=== PATIENT | female | born 1990 | race Caucasian/White ===

== ENCOUNTER 2017-01-02 10:16 | Inpatient (IN) | payer OTHER ==
[~2017-01-02] VITALS: Ht 154.9 cm; Wt 73.7 kg
[~2017-01-02 10:16] MED LIST: DIPH12.59 PO; PREN-39 PO; URSO300C3 PO
[2017-01-02 10:39] VITALS: Ht 154.9 cm; Wt 73.7 kg
[2017-01-02 10:40] VITALS: BP 109/65; PULSE 87
--- NOTE | 2017-01-02 13:02 | RADRPT ---
PROCEDURE: OB ultrasound for biophysical profile CLINICAL INDICATION: Spontaneous rupture of membranes TECHNIQUE: Multiple sonographic images of the pelvis were obtained. Transabdominal views of the g ravid uterus are available for review. The images were reviewed on a PACS workstation. COMPARISON: None FINDINGS: breathing movement = 2/2 tone = 2/2 motion = 2/2 FAMILIA = 2/2 FAMILIA = 17.2 cm Single live intrauterine with cardiac activity of 150 bpm. position is cephal ic. The placenta is bilateral. IMPRESSION: 1. Single live intrauterine gestation. 2. Biophysical profile = 8/8. 3. FAMILIA = 17.2 cm. RPTAT: HH .Romy Spencer MD, MD Date Time Electronically viewed and signed by .Romy Spencer MD, on 01/02/2017 13:02 .G/
[2017-01-02] MEDS ORDERED: LIDOCAINE 1% (MPF) 30 ML INJ INJ PRN (13:30)
[2017-01-02] MEDS ORDERED: LACTATED RINGER'S 1,000 ML IV PRN (13:30)
[2017-01-02] MEDS ORDERED: AMPICILLIN 2 GM/NS (PMX) 100 ML IV ONE (13:30)
[2017-01-02] MEDS ORDERED: MISOPROSTOL 200 MCG TAB PR PRN (13:30)
[2017-01-02] MEDS ORDERED: OXYTOCIN 30 UNITS/LR 500 ML IV PRN (13:30)
[2017-01-02] MEDS ORDERED: BUTORPHANOL 2 MG INJ IV PRN ×2 (13:30)
[2017-01-02] MEDS ORDERED: OXYTOCIN 30 UNITS/LR 500 ML IV SCH ×3 (13:30→18:30)
[2017-01-02] MEDS ORDERED: CARBOPROST 250 MCG INJ IM PRN (13:30)
[2017-01-02] MEDS ORDERED: METHYLERGONOVINE 0.2 MG INJ IM PRN (13:30)
[2017-01-02] MEDS: LACTATED RINGER'S 1,000 ML IV SCH ×2 (14:38→21:10)
[2017-01-02 14:45] LABS: ABNORMAL IP MESSAGE 1; BASOPHILS % 0.3 % (0.0-2.0); EOSINOPHILS % 0.4 % (0.0-7.0); HEMATOCRIT 34.5 % (37.0-47.0); HEMOGLOBIN 11.7 g/dl (12.0-16.0); LYMPHOCYTES # 1.1 10^3/ul (0.8-2.9); LYMPHOCYTES % 15.7 % (15.0-51.0); MEAN CORPUSCULAR HEMOGLOBIN 31.3 pg (29.0-33.0); MEAN CORPUSCULAR HGB CONC 33.9 g/dl (32.0-37.0); MEAN CORPUSCULAR VOLUME 92.2 fl (82.0-101.0); MEAN PLATELET VOLUME 13.4 fl (7.4-10.4); MONOCYTE # 0.4 10^3/ul (0.3-0.9); MONOCYTES % 5.7 % (0.0-11.0); NEUTROPHIL # 5.5 10^3/ul (1.6-7.5); NEUTROPHILS % 77.2 % (39.0-77.0); PLATELET COUNT 122 10^3/UL (140-415); RED BLOOD COUNT 3.74 10^6/ul (4.20-5.40); RED CELL DISTRIBUTION WIDTH 12.9 % (11.5-14.5); WHITE BLOOD COUNT 7.1 10^3/ul (4.8-10.8)
[2017-01-02 14:50] LABS: POSITIVE DIFF @See below
[2017-01-02 15:04] LABS: INR 0.9; PARTIAL THROMBOPLASTIN TIME 23.3 Sec (25.0-35.0); PROTIME 12.1 Sec (12.2-14.2); PT RATIO 0.9
--- NOTE | 2017-01-02 15:50 | RADRPT ---
PROCEDURE: US OB. CLINICAL INDICATION: Size and dates , spontaneous rupture of membranes TECHNIQUE: Multiple sonographic images of the pelvis and gravid uterus were obtained. The images were reviewed on a PACS workstation. COMPARISON: No prior studies are available for comparison. FINDINGS: There is a single viable intrauterine gestation. Cardiac activity is present with 134 beats per min [place]. There is a vertex presentation. The placenta is posterior. There is no evidence for an abruption or placenta previa. Measurements were made in order to determine age. The results are as follows: BPD =8.8 cm HC =31.6 cm AC =34.9 cm FL =7.1 cm Estimated gestational age of approximately 36 weeks and 4 days based on ultrasound measurements. Clinical age: 35 weeks and 6 days. The estimated date of delivery is 01/26/17, based on ultrasound measurements. The EFW = 3216 g, 89%, based on LMP age. RPTAT: AA IMPRESSION: Single viable intrauterine gestation of approximately 36 weeks and 4 days based on ultrasound measu rements. .Juan Flores MD, Date Time Electronically viewed and signed by .Juan Flores MD, MD on 01/02/2017 15:50 .S/
[2017-01-02 16:48] LABS: ALBUMIN 3.3 g/dl (3.3-4.9); ALBUMIN/GLOBULIN RATIO 0.84; BILIRUBIN,INDIRECT 0.2 mg/dl (0-1.1); BILIRUBIN,TOTAL 0.2 mg/dl (0.2-1.3); CALCIUM 9.2 mg/dl (8.4-10.2); CREATININE 0.46 mg/dl (0.44-1.00); POTASSIUM 3.9 mmol/L (3.5-5.1); TOTAL PROTEIN 7.2 g/dl (6.1-8.1)
[2017-01-02] MEDS: AMPICILLIN 1 GM/NS (PMX) 50 ML IV SCH ×2 (18:23→22:25)
[2017-01-02] MEDS ORDERED: URSODIOL 300 MG CAP PO ONE (19:00)
[2017-01-03] MEDS ORDERED: LACTATED RINGER'S 1,000 ML IV ONE (02:16)
[2017-01-03] MEDS ORDERED: FENTAnyl 2MCG/ML-ROPIV 0.2% 100 ML ONE (02:20)
[2017-01-03] MEDS: AMPICILLIN 1 GM/NS (PMX) 50 ML IV SCH ×3 (02:22→09:30)
[2017-01-03] MEDS ORDERED: DIPHENHYDRAMINE 50 MG INJ IV PRN (02:30)
[2017-01-03] MEDS ORDERED: ONDANSETRON 4 MG INJ IV PRN ×2 (02:30→12:30)
[2017-01-03] MEDS ORDERED: morphine 4 MG/ML VIAL IV PRN (02:30)
[2017-01-03] MEDS ORDERED: morphine 2 MG INJ IV PRN (02:30)
[2017-01-03] MEDS ORDERED: TRIMETHOBENZAMIDE 100 MG/ML VIAL IM PRN (02:30)
[2017-01-03] MEDS ORDERED: NALOXONE (0.4 MG/ML) INJ IV PRN (02:30)
[2017-01-03] MEDS ORDERED: FENTAnyl 2MCG/ML-ROPIV 0.2% 100 ML BAG EPI SCH (02:30)
[2017-01-03] MEDS ORDERED: NALBUPHINE HCL (10 MG/1 ML) INJ IV PRN (02:30)
[2017-01-03] MEDS ORDERED: KETOROLAC 30 MG INJ IV PRN (02:30)
[2017-01-03] MEDS ORDERED: ONDANSETRON 4 MG INJ IV ONE (02:30)
[2017-01-03] MEDS ORDERED: CITRIC ACID/NA CITRATE 30 ML CUP PO ONE (02:30)
[2017-01-03] MEDS: LACTATED RINGER'S 1,000 ML IV SCH ×2 (04:39→07:11)
[2017-01-03 07:31] VITALS: BP 94/50; PULSE 64; RESP 20
--- NOTE | 2017-01-03 07:51 | CONS ---
Date/Time of Note Date/Time of Note DATE: 01/03/17 TIME: 07:15 Consultation Date/Type/Reason Admit Date/Time Jan 02, 2017 at 13:20 Ob triage consult: This patient is a26 years old, G 5 P4 with estimated date of confinement of , which makes her 35 6/7 weeks. She came to Ob triage complaining of rupture of membranes. The diagnosis of cholestasis of was made few months ago and placed on Actigall 300 mg every 6 hours.. 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 On examination she is a well developed well nourished woman, in no acute distress. her general vital signs are within normal limites; with blood Pressure of 109/65 /, pulse rate of 87, respiration rate of 18 and temperature of 98.2. Pelvic exam: cx is 1 cm, 50 % , at _2 station, with intact membranes. abdomen is soft Reason for Consultation Laboratory Tests Test 01/02/17 10:45 01/02/17 14:25 Membranes Rupture POSITIVE White Blood Count 7.110^3/ul Red Blood Count 3.7410^6/ul Hemoglobin 11.7g/dl Hematocrit 34.5% Mean Corpuscular Volume 92.2fl Mean Corpuscular Hemoglobin 31.3pg Mean Corpuscular Hemoglobin Concent 33.9g/dl Red Cell Distribution Width 12.9% Platelet Count 55124^3/UL Mean Platelet Volume 13.4fl Neutrophils % 77.2% Lymphocytes % 15.7% Monocytes % 5.7% Eosinophils % 0.4% Basophils % 0.3% Nucleated Red Blood Cells % 0.0/100WBC Neutrophils # 5.510^3/ul Lymphocytes # 1.110^3/ul Monocytes # 0.410^3/ul Eosinophils # 0.010^3/ul Basophils # 0.010^3/ul Nucleated Red Blood Cells # 0.010^3/ul Prothrombin Time 12.1Sec Prothrombin Time Ratio 0.9 INR International Normalized Ratio 0.90 Activated Partial Thromboplast Time 23.3Sec Sodium Level 139mmol/L Potassium Level 3.9mmol/L Chloride Level 109mmol/L Carbon Dioxide Level 22mmol/L Anion Gap 12 Blood Urea Nitrogen 8mg/dl Creatinine 0.46mg/dl Glucose Level 79mg/dl Calcium Level 9.2mg/dl Total Bilirubin 0.2mg/dl Direct Bilirubin 0.00mg/dl Indirect Bilirubin 0.2mg/dl Aspartate Amino Transf (AST/SGOT) 86IU/L Alanine Aminotransferase (ALT/SGPT) 137IU/L Alkaline Phosphatase 235IU/L Total Protein 7.2g/dl Albumin 3.3g/dl Globulin 3.90g/dl Albumin/Globulin Ratio 0.84 Current Medications Medications (Trade) Dose Ordered Sig/Kurt Route PRN Reason Start Time Stop Time Status Last Admin Dose Admin Lactated Ringer's 1,000 ml @ 125 mls/hr Q8H IV 01/02/17 13:20 01/03/17 07:11 125 MLS/HR Ampicillin 100 ml @ 100 mls/hr ONCE ONCE IV 01/02/17 13:30 01/02/17 14:29 DC 01/02/17 14:38 100 MLS/HR Ampicillin (Ampicillin 1 Gm/ NS (Pmx)) 50 ml @ 100 mls/hr Q4H IV 01/02/17 17:30 01/03/17 02:22 100 MLS/HR Butorphanol Tartrate (Stadol) 1 mg Q2H PRN IV PAIN 01/02/17 13:30 Butorphanol Tartrate (Stadol) 2 mg Q2H PRN IV PAIN 01/02/17 13:30 01/03/17 01:53 2 MG Lidocaine 30 ml 30 ml ONCE PRN INJ EPISIOTOMY/TEARING 01/02/17 13:30 Oxytocin/Lactated Ringer's 500 ml @ 125 mls/hr ONCE -MAY REPEAT X1 IV 01/02/17 13:30 Oxytocin/Lactated Ringer's 500 ml @ 125 mls/hr ONCE IV 01/02/17 13:30 Lactated Ringer's 1,000 ml @ 2,000 mls/hr Q30M PRN IV PRE-EPIDURAL BOLUS 01/02/17 13:30 Oxytocin/Lactated Ringer's 500 ml @ 0 mls/hr ONCE PRN IV For Hemorrhage Management 01/02/17 13:30 Methylergonovine Maleate (Methergine) 0.2 mg ONCE PRN IM VAGINAL BLEEDING 01/02/17 13:30 Carboprost Tromethamine (Hemabate) 250 mcg ONCE PRN IM VAGINAL BLEEDING 01/02/17 13:30 Misoprostol 1000 mcg 1,[address] VAGINAL BLEEDING 01/02/17 13:30 Oxytocin/Lactated Ringer's 500 ml @ 0 mls/hr Q0M IV 01/02/17 18:30 01/02/17 18:49 1 MLS/HR Ursodiol (Actigall) 300 mg ONCE ONCE PO 01/02/17 19:00 01/02/17 19:01 DC 01/02/17 18:50 300 MG Naloxone HCl (Narcan) 0.1 mg Q2M PRN IV FOR RESP RATE 8 OR LESS 01/03/17 02:30 01/04/17 02:29 Ketorolac Tromethamine (Toradol) 30 mg Q6H PRN IV PAIN 01/03/17 02:30 01/04/17 02:29 Morphine Sulfate (morphine) 2 mg Q3H PRN IV PAIN LEVEL 1-5 01/03/17 02:30 01/04/17 02:29 Morphine Sulfate (morphine) 4 mg Q3H PRN IV PAIN LEVEL 6-10 01/03/17 02:30 01/04/17 02:29 Diphenhydramine HCl (Benadryl) 25 mg Q6H PRN IV ITCHING 01/03/17 02:30 01/04/17 02:29 Nalbuphine HCl (Nubain) 5 mg ONCE PRN IV ITCHING 01/03/17 02:30 01/04/17 02:29 Ondansetron HCl (Zofran Inj) 4 mg Q6H PRN IV NAUSEA AND/OR VOMITING 01/03/17 02:30 01/04/17 02:29 Trimethobenzamide HCl (Tigan) 200 mg Q6H PRN IM NAUSEA AND/OR VOMITING 01/03/17 02:30 01/04/17 02:29 Fentanyl/ Ropivacaine 100 ml 100 ml EPIDURAL INFUSION EPI 01/03/17 02:30 Lactated Ringer's (Lr) 1,000 ml @ 1,000 mls/hr Q1H ONCE IV 01/03/17 02:16 01/03/17 03:15 DC 01/03/17 03:11 1,000 MLS/HR Ondansetron HCl (Zofran Inj) 4 mg pre-procedure ONCE IV 01/03/17 02:30 01/03/17 02:31 DC 01/03/17 03:11 4 MG Citric Acid/ Sodium Citrate 30 ml 30 ml PRE-OP ONCE PO 01/03/17 02:30 01/03/17 02:31 DC 01/03/17 03:11 30 ML Fentanyl/ Ropivacaine 100 ml @ ud STK-MED ONCE .ROUTE 01/03/17 02:20 01/03/17 02:21 DC Constitutional: No chills, No diaphoresis, No disoriented, No febrile, No improved, No no complaints, No other, No poor po, No requiring IVF, No requiring O2 Eyes: No discharge, No no complaints, No other, No pain, No redness, No visual change ENT: No bleeding, No congestion, No discharge, No dysphagia, No no complaints, No other, No pain, No sore throat Respiratory: No cough, No no complaints, No other, No pain, No pleuritic pain, No shortness of breath, No sputum, No wheezing Cardiovascular: No chest pain, No edema, No lightheadedness, No no complaints, No orthopenea, No other, No palpitations, No paroxysmal nocturnal dyspnea Gastrointestinal: No blood, No constipation, No decreased appetite, No diarrhea , No flatus, No nausea, No no complaints, No other, No pain, No passing stool, No vomiting Genitourinary: other (cervix is 1 cm as I mentioned.), No bleeding, No discharge, No dysuria, No flank pain, No hematuria, No no complaints Musculoskeletal: No back pain, No bone/joint pain, No neck pain, No no complaints, No other, No restricted range of motion, No swelling Skin: other (no erythema of palmes of hands), No bruising, No erythema, No laceration, No no complaints, No pruritis, No rash, No skin lesions Neurologic: No confusion, No dizziness, No focal-weakness, No headache, No no complaints, No other, No seizure, No syncope Additional Comments On ultrasound studies : estimated age is 36 4/7 weeks.. Estimated weight is 3216 g : 89%. BPP 8/8 and FAMILIA 17.2 cm. Test for rupture of membranes is positive SGOT and SGPT are somewhat elevated. Plan :will admit for induction Social History Smoking Status: Never smoker Exam/Review of Systems Vital Signs Vitals Vital Signs Date Time Temp Pulse Resp B/P Pulse Ox O2 Delivery O2 Flow Rate FiO2 01/02/17 10:40 98.2 87 109/65 Intake and Output 01/02/17 01/02/17 01/03/17 15:00 23:00 07:00 Intake Total 350 ml 929.5 ml 1053 ml Output Total 700 ml 200 ml Balance 350 ml 229.5 ml 853 ml Results Result Diagram: 01/02/17 1425 01/02/17 1425 Results 24 hrs Laboratory Tests Test 01/02/17 10:45 01/02/17 14:25 Membranes Rupture POSITIVE H White Blood Count 7.1 # Red Blood Count 3.74 L Hemoglobin 11.7 L Hematocrit 34.5 L Mean Corpuscular Volume 92.2 Mean Corpuscular Hemoglobin 31.3 Mean Corpuscular Hemoglobin Concent 33.9 Red Cell Distribution Width 12.9 Platelet Count 122 L Mean Platelet Volume 13.4 H Neutrophils % 77.2 H Lymphocytes % 15.7 Monocytes % 5.7 Eosinophils % 0.4 Basophils % 0.3 Nucleated Red Blood Cells % 0.0 Neutrophils # 5.5 Lymphocytes # 1.1 Monocytes # 0.4 Eosinophils # 0.0 Basophils # 0.0 Nucleated Red Blood Cells # 0.0 Prothrombin Time 12.1 L Prothrombin Time Ratio 0.9 INR International Normalized Ratio 0.90 Activated Partial Thromboplast Time 23.3 L Sodium Level 139 Potassium Level 3.9 Chloride Level 109 Carbon Dioxide Level 22 Anion Gap 12 Blood Urea Nitrogen 8 Creatinine 0.46 Glucose Level 79 Calcium Level 9.2 Total Bilirubin 0.2 Direct Bilirubin 0.00 Indirect Bilirubin 0.2 Aspartate Amino Transf (AST/SGOT) 86 H Alanine Aminotransferase (ALT/SGPT) 137 H Alkaline Phosphatase 235 H Total Protein 7.2 Albumin 3.3 Globulin 3.90 H Albumin/Globulin Ratio 0.84 Medications Medications Current Medications Lactated Ringer's 1,000 ml @ 125 mls/hr Q8H IV Last administered on 07:11; Admin Dose 125 MLS/HR; Start 01/02/17 at 13:20 Ampicillin (Ampicillin 1 Gm/ NS (Pmx)) 50 ml @ 100 mls/hr Q4H IV Last administered on 01/03/17 02:22; Admin Dose 100 MLS/HR; Start 01/02/17 at 17: 30 Butorphanol Tartrate (Stadol) 1 mg Q2H PRN IV PAIN; Start 01/02/17 at 13:30 Butorphanol Tartrate (Stadol) 2 mg Q2H PRN IV PAIN Last administered on t 01:53; Admin Dose 2 MG; Start 01/02/17 at 13:30 Lidocaine 30 ml 30 ml ONCE PRN INJ EPISIOTOMY/TEARING; Start 01/02/17 at 13:30 Oxytocin/Lactated Ringer's 500 ml @ 125 mls/hr ONCE IV ; Start 01/02/17 at 13: 30 Lactated Ringer's 1,000 ml @ 2,000 mls/hr Q30M PRN IV PRE-EPIDURAL BOLUS; Start 01/02/17 at 13:30 Oxytocin/Lactated Ringer's 500 ml @ 0 mls/hr ONCE PRN IV For Hemorrhage Management; Start 01/02/17 at 13:30 Methylergonovine Maleate (Methergine) 0.2 mg ONCE PRN IM VAGINAL BLEEDING; Start 01/02/17 at 13:30 Carboprost Tromethamine (Hemabate) 250 mcg ONCE PRN IM VAGINAL BLEEDING; Start 01/02/17 at 13:30 Misoprostol 1000 mcg 1,[address] VAGINAL BLEEDING; Start 01/02/17 at 13:30 Oxytocin/Lactated Ringer's 500 ml @ 0 mls/hr Q0M IV Last administered on t 18:49; Admin Dose 1 MLS/HR; Start 01/02/17 at 18:30 Naloxone HCl (Narcan) 0.1 mg Q2M PRN IV FOR RESP RATE 8 OR LESS; Start at 02:30; Stop 01/04/17 at 02:29 Ketorolac Tromethamine (Toradol) 30 mg Q6H PRN IV PAIN; Start 01/03/17 at 02: 30; Stop 01/04/17 at 02:29 Morphine Sulfate (morphine) 2 mg Q3H PRN IV PAIN LEVEL 1-5; Start 01/03/17 at 02:30; Stop 01/04/17 at 02:29 Morphine Sulfate (morphine) 4 mg Q3H PRN IV PAIN LEVEL 6-10; Start 01/03/17 at 02:30; Stop 01/04/17 at 02:29 Diphenhydramine HCl (Benadryl) 25 mg Q6H PRN IV ITCHING; Start 01/03/17 at 02: 30; Stop 01/04/17 at 02:29 Nalbuphine HCl (Nubain) 5 mg ONCE PRN IV ITCHING; Start 01/03/17 at 02:30; Stop 01/04/17 at 02:29 Ondansetron HCl (Zofran Inj) 4 mg Q6H PRN IV NAUSEA AND/OR VOMITING; Start at 02:30; Stop 01/04/17 at 02:29 Trimethobenzamide HCl (Tigan) 200 mg Q6H PRN IM NAUSEA AND/OR VOMITING; Start 01/03/17 at 02:30; Stop 01/04/17 at 02:29 NAEEM MERCADO MD Jan 03, 2017 07:38 NAEEM MERCADO MD Jan 03, 2017 07:38
--- NOTE | 2017-01-03 10:21 | LDN ---
Date/Time of Note Date/Time of Note DATE: 01/03/17 TIME: 10:19 Delivery Summary Normal spontaneous vaginal delivery baby boy from OA position shoulders delivered with no difficulty rest of the baby's body follow cord clamped after stopped pulsation, amniotic fluid and placenta meconium stain sent to pathology estimated blood loss 200 vaginal and perineal inspection no laceration Placenta Delivered: Spontaneously Meconium: Light Episiotomy: No Laceration repair: None Anesthesia type: Epidural Estimated blood loss: 200 Sponge & Needle done & correct: Yes All needle counts correct: Yes Any foreign bodies felt in the: No Problems: IRINA VEE MD Jan 03, 2017 10:21
--- NOTE | 2017-01-03 10:35 | HP ---
Date/Time of Note Date/Time of Note DATE: 01/03/17 TIME: 10:23 OB - History Hx of Present Free Text/Dictation 26 years old female admitted to [facility] at 35 weeks and 6 days with ruptured membrane in early labor , she is diagnosed with cholestasis of on ursodiol 300 mg 3 times daily, requires labor augmentation and antibiotic coverage due to rupture member, pelvic examination on admission cervix 1 cm dilated 50% effaced vertex at -2 station. Chief Complaint: approximately 36 weeks complicated with cholestasis Estimated Due Date: Jan 31, 2017 : 5 Para: 4 Care: Good Care Ultrasounds: Normal mid trimester US Obstetrical Complications: None Medical Complications: None Past Family/Social History * Past Medical, Surgical, Family and Obstetric Histories reviewed from chart. Rubella: immune RPR/VDRL: Negative GBS Status: Unknown HBsAG: Negative OB Admission Exam Vital Signs Vital Signs Vital Signs Date Time Temp Pulse Resp B/P Pulse Ox O2 Delivery O2 Flow Rate FiO2 01/03/17 07:31 98.1 64 20 94/50 99 Room Air Physical Exam HEENT: WNL Lungs: Clear, Equal Abdomen: WNL Extremities: Normal Reflexes: Normal Cervical Dilatation: 1cm Effacement: 50% Station: -2 Membranes: Ruptured Amniotic Fluid: Thin Meconium Heart Rate: 120's Accelerations: Accelerations Present Decelerations: No Decelerations Varibility: Moderate Contractions on Admission: >10 Minutes Apart Last 72 hours Lab Results CBC & BMP 01/02/17 14:25 Liver Function Test 01/02/17 14:25 Alanine Aminotransferase (ALT/SGPT) 137 H Albumin 3.3 Alkaline Phosphatase 235 H Aspartate Amino Transf (AST/SGOT) 86 H Direct Bilirubin 0.00 Total Protein 7.2 OB Assessment/Plan Reason for admission: induction of labor Plan: Other (26 years old 35 weeks 6 7 days complicated with cholestasis of , rupture mem early labor requires augmentation) IRINA VEE MD Jan 03, 2017 10:34
[2017-01-03 12:10] VITALS: BP 100/63; PULSE 63; RESP 19
[2017-01-03] MEDS ORDERED: LANOLIN 7 GM TUBE TOP PRN (12:30)
[2017-01-03] MEDS ORDERED: HYDROCODONE/APAP (5/325) TAB PO PRN ×2 (12:30)
[2017-01-03] MEDS ORDERED: DIBUCAINE 1% 30 GM OINT PR PRN (12:30)
[2017-01-03] MEDS ORDERED: BENZOCAINE 20% 56 ML SPRAY TOP PRN (12:30)
[2017-01-03] MEDS ORDERED: ACETAMINOPHEN 325 MG TAB PO PRN (12:30)
[2017-01-03] MEDS ORDERED: OXYCODONE/ASPIRIN (4.88/325) TAB PO PRN ×2 (12:30)
[2017-01-03] MEDS ORDERED: WITCH HAZEL/GLYCERIN PAD PR PRN (12:30)
[2017-01-03] MEDS: IBUPROFEN 600 MG TAB PO SCH ×2 (13:45→18:21)
[2017-01-03] MEDS: OXYTOCIN 30 UNITS/LR 500 ML IV SCH ×2 (13:47→16:07)
[2017-01-03 16:00] VITALS: BP 103/67; PULSE 68; RESP 16
[2017-01-03 20:00] VITALS: BP 101/60; PULSE 59; RESP 18
[2017-01-03] MEDS: SENNA/DOCUSATE NA (8.6MG/50MG) TAB PO SCH (22:00)
[2017-01-04] MEDS: IBUPROFEN 600 MG TAB PO SCH ×4 (00:07→17:36)
[2017-01-04 04:00] VITALS: BP 96/56; PULSE 64; RESP 17
[2017-01-04 07:50] VITALS: BP 99/57; PULSE 65; RESP 19
[2017-01-04] MEDS: SENNA/DOCUSATE NA (8.6MG/50MG) TAB PO SCH (09:04)
[2017-01-04 09:09] LABS: ABNORMAL IP MESSAGE 1; BASOPHILS % 0.1 % (0.0-2.0); EOSINOPHILS # 0.1 10^3/ul (0.0-0.5); EOSINOPHILS % 0.7 % (0.0-7.0); HEMATOCRIT 33.6 % (37.0-47.0); HEMOGLOBIN 10.6 g/dl (12.0-16.0); LYMPHOCYTES # 1.2 10^3/ul (0.8-2.9); LYMPHOCYTES % 13.8 % (15.0-51.0); MEAN CORPUSCULAR HEMOGLOBIN 29.9 pg (29.0-33.0); MEAN CORPUSCULAR HGB CONC 31.5 g/dl (32.0-37.0); MEAN CORPUSCULAR VOLUME 94.6 fl (82.0-101.0); MEAN PLATELET VOLUME 13.4 fl (7.4-10.4); MONOCYTE # 0.5 10^3/ul (0.3-0.9); MONOCYTES % 5.9 % (0.0-11.0); NEUTROPHILS % 78.8 % (39.0-77.0); PLATELET COUNT 104 10^3/UL (140-415); RED BLOOD COUNT 3.55 10^6/ul (4.20-5.40); RED CELL DISTRIBUTION WIDTH 12.9 % (11.5-14.5); WHITE BLOOD COUNT 8.8 10^3/ul (4.8-10.8)
--- NOTE | 2017-01-04 12:56 | QN ---
Documentation Comment Post normal vaginal delivery day 1 Afebrile Vital signs are stable Abdomen soft Uterus firm Lochia moderate Extremity normal IRINA VEE MD Jan 04, 2017 12:56
[2017-01-04 16:00] VITALS: BP 105/59; PULSE 62; RESP 18
[2017-01-04] MEDS ORDERED: INFLUENZA VIRUS VACCINE 0.5 ML SYG IM* ONE (18:30)
[2017-01-04 22:15] VITALS: BP 109/60; PULSE 66; RESP 18
[2017-01-05] MEDS: SENNA/DOCUSATE NA (8.6MG/50MG) TAB PO SCH ×2 (00:12→09:00)
[2017-01-05] MEDS: IBUPROFEN 600 MG TAB PO SCH ×4 (00:12→18:00)
[2017-01-05 03:50] VITALS: BP 109/65; PULSE 53; RESP 18
[2017-01-05 09:00] VITALS: BP 102/62; PULSE 62; RESP 18
[2017-01-05] MEDS ORDERED: MEASLES,MUMPS,RUBELLA VACCINE INJ SC* ONE (09:00)
--- NOTE | 2017-01-05 11:03 | DS ---
Date/Time of Note Date/Time of Note DATE: 01/05/17 TIME: 10:59 Discharge Summary Admission/Discharge Info Admit Date/Time Jan 02, 2017 at 13:20 Discharge Date/Time January 05, 2017 at 11:00 Discharge Diagnosis Post normal vaginal delivery day 2 Patient Condition: Good Procedures Normal vaginal delivery Hx of Present Illness 36 weeks , complicated with cholestasis of , underwent successful induction had normal vaginal delivery Hospital Course Satisfactory recovery, denied itching during the period Home Meds Reported Medications Ursodiol* (Ursodiol*) 300 Mg Capsule, 300 MG PO TID, CAP 02/23/14 Diphenhydramine Hcl* (Diphenhydramine Hcl*) 12.5 Mg/5 Ml Elixir, 12.5 MG PO Q6H Y for ITCHING, ML 02/22/14 Ursodiol* (Actigall*) 60 Mg/Ml(Cmpd) Susp, 60 MG PO, ML 02/22/14 Vits W-Ca,Fe,Fa(<1MG) ( Vitamins) 1 Tab Tablet, 1 TAB PO 02/22/14 Follow-up Plan instruction given recommended to make appointment to be seen at the clinic in 2 weeks Primary Care Provider Linden Cole MD Time spent on discharge: < 30 minutes IRINA VEE MD Jan 05, 2017 11:03
== END 2017-01-05 20:50 | disposition home or self-care (01) | DRG 775 ==
LOC: L-D 10:16 → OBT 10:16 → L-D 13:20 → OBT 13:24 → L-D 14:16 → PP1 01-03 12:14
PROVIDERS: ADMIT Obstetrics & Gynecology; ATTEND Obstetrics & Gynecology
PROC: 10E0XZZ Delivery of Products of Conception, External Approach (ICD-10-PCS; principal; 2017-01-03)
PROC: 3E0P3VZ Introduction of Hormone into Female Reproductive, Percutaneous Approach (ICD-10-PCS; 2017-01-03)
DX: O60.14X0 Preterm labor third trimester with preterm delivery third trimester, not applicable or unspecified (principal); Z37.0 Single live birth; Z3A.35 35 weeks gestation of pregnancy
CPT/HCPCS: 62319; 76815; 76818; 80053; 84112; 85025; 85610; 85730; 86592; 86900; 86901; 90686; 99464; G0463; J0290; J0595; J2405; J2590; J3010; J7120